=== PATIENT | female | born 1980 | race Caucasian/White ===

== ENCOUNTER 2016-04-18 08:47 | Emergency (ER) | payer OTHER ==
--- NOTE | 2016-04-18 08:57 | ED Physician Documentation ---
General Adult - HISTORIAN Historian: patient - HPI Chief Complaint: General Adult Onset: days ago (3 days) Timing: still present Severity: moderate Context: no precipitating factors Further Comments: yes (3 days started with fever/chills, runny nose clear to yellow, no blood noted. HAs a mild sore throat, mild productive cough, yellow/ green. Has a headaches, body aches. Perri was sick last week with VGE symptoms. Patient denies that she is ) - ROS CONST: fever, recent illness - PAST HX Past History: asthma Other History: none Surgeries/Procedures: Allergies/Adverse Reactions: Allergies Allergy/AdvReac Type Severity Reaction Status Date / Time amoxicillin [Amoxicillin] Allergy Mild Verified 04/18/16 08:55 penicillin G Allergy Mild Verified 04/18/16 08:55 Home Medications: Ambulatory Orders Medication Instructions Recorded NK [NK] 01/29/15 - SOCIAL HX Smoking History: greater than 1 pack/day Alcohol Use: none Drug Use: none - FAMILY HX Family History: No - VITAL SIGNS Vital Signs: Vital Signs Temp Pulse Resp BP Pulse Ox 129/91 01/29/15 16:30 - REVIEWED ASSESSMENTS Nursing Assessment Reviewed: Yes Vitals Reviewed: Yes General Adult Physical Exam - PHYSICAL EXAM GENERAL APPEARANCE: mild distress EENT: eye inspection normal, ENT inspection normal, pharyngeal erythema (mild) NECK: normal inspection, thyroid normal, supple. No: lymphadenopathy RESPIRATORY: no resp distress, chest non-tender, breath sounds normal. No: wheezes, rales, rhonchi CVS: reg rate & rhythm, heart sounds normal, equal pulses, no gallop ABDOMEN: soft, no organomegaly, normal bowel sounds, no abdominal bruit, no distension, non-tender BACK: no CVA tenderness SKIN: warm/dry, normal color, other (no rash, some ecchymosis tot he left neck area) NEURO: oriented X3, mood/affect nml, cognition normal Discharge Clincal Impression: Viral syndrome Referrals: Yolie Carrero MD [Primary Care Provider] - 2 Days Additional Instructions: Drink a lot of water, take some Tylenol or Ibuprofen as needed for aches and fever. Take your rescue inhaler as needed for wheezing or exacerbation of asthma. If your breathing starts to get worse to follow-up with your primary care provider or return to the ED. Home Medications: Ambulatory Orders NK [NK] 01/29/15 Condition: Stable Disposition: 01 HOME, SELF-CARE Decision to Admit: NO Date of Decison to Admit: 04/18/16 Decision Time: 09:05
[2016-04-18 09:17] VITALS: BP 108/68
== END 2016-04-18 09:15 | disposition home or self-care (01) ==
LOC: ED 08:47
DX: J06.9 Acute upper respiratory infection, unspecified (principal); F17.210 Nicotine dependence, cigarettes, uncomplicated
CPT/HCPCS: 87400; 99282

== ENCOUNTER 2016-05-16 08:48 | Emergency (ER) | payer OTHER ==
--- NOTE | 2016-05-16 08:54 | ED Physician Documentation ---
General Adult - HISTORIAN Historian: patient - HPI Stated Complaint: L foot pain Chief Complaint: General Adult Onset: days ago (2) Timing: still present Severity: moderate Further Comments: yes (Pt is a 35 yo female with L foot pain x 2 days. No acute injury. Pain is over L 5th metatarsal and radiates to ankle.) - ROS CONST: no problems EYES/ENT: none CVS/RESP: none GI/: none MS/SKIN/LYMPH: other (L foot pain) - PAST HX Past History: none Other History: none Allergies/Adverse Reactions: Allergies Allergy/AdvReac Type Severity Reaction Status Date / Time amoxicillin [Amoxicillin] Allergy Mild Verified 05/16/16 08:58 penicillin G Allergy Mild Verified 05/16/16 08:58 Home Medications: Ambulatory Orders Medication Instructions Recorded Zolpidem Tartrate [Ambien] 5 mg PO HS 05/16/16 - SOCIAL HX Smoking History: cigarettes - FAMILY HX Family History: No - VITAL SIGNS Vital Signs: Vital Signs Temp Pulse Resp BP Pulse Ox 108/68 04/18/16 09:15 - REVIEWED ASSESSMENTS Nursing Assessment Reviewed: Yes Vitals Reviewed: Yes Progress - Progress Progress: X-rays L foot, L ankle, negative for fracture. Increased pain with application of tuning fork. ? occult hairline fx Crutches, post-op shoe. NSAIDS. General Adult Physical Exam - PHYSICAL EXAM GENERAL APPEARANCE: mild distress EENT: eye inspection normal NECK: normal inspection, supple RESPIRATORY: no resp distress, chest non-tender, breath sounds normal CVS: reg rate & rhythm BACK: normal inspection SKIN: warm/dry, normal color EXTREMITIES: normal range of motion, other (tenderness over L 5th metatarsal) NEURO: oriented X3, motor nml, sensation nml Discharge Clincal Impression: possible occult fracture Foot pain Qualifiers: Laterality: left Qualified Code(s): M79.672 - Pain in left foot Referrals: Yolie Carrero MD [Primary Care Provider] - Home Medications: Ambulatory Orders Zolpidem Tartrate [Ambien] 5 mg PO HS 05/16/16 Condition: Good Disposition: 01 HOME, SELF-CARE Decision to Admit: NO Decision Time: 09:50
--- NOTE | 2016-05-16 09:46 | Diagnostic Imaging Report ---
GIAN HOYOS [facility] [address] [facility] [address] [address] Report Submission Date: May 16, 2016 9:44:02 AM METROLOGY SPECIALIST Patient Study Name: FAUSTO TABARES Date: May 16, 2016 9:19:00 AM METROLOGY SPECIALIST Modality Type: CR Gender: F Description: LOWER EXTREMITY : 84 Institution: [facility] Physician: GIAN HOYOS 3 views left foot History: LEFT FOOT, PAIN X2 DAYS, NO KNOWN INJURY Findings: No comparison studies No evidence of acute fracture or dislocation of the left foot. Joint spaces are preserved. No osseous erosion Plantar calcaneal enthesophyte is present Impression: No acute osseous pathology. Plantar calcaneal enthesophyte. Electronically signed on May 16, 2016 9:44:02 AM METROLOGY SPECIALIST by: Jeanne GARCIA
--- NOTE | 2016-05-16 09:46 | Diagnostic Imaging Report ---
GIAN HOYOS [facility] [address] [facility] [address] [address] Report Submission Date: May 16, 2016 9:42:13 AM MAID SUPERVISOR Patient Study Name: FAUSTO TABARES Date: May 16, 2016 9:21:04 AM MAID SUPERVISOR Modality Type: CR Gender: F Description: LOWER EXTREMITY : 84 Institution: [facility] Physician: GIAN HOYOS 3 views of the left ankle History: LEFT ANKLE, PAIN X2 DAYS, NO KNOWN INJURY Findings: No comparison studies No evidence of acute fracture or dislocation of the left ankle Ankle mortise is preserved Soft tissues are within normal limits Plantar calcaneal enthesophyte is present Impression: 1. No evidence of acute fracture or dislocation 2. Plantar calcaneal enthesophyte Electronically signed on May 16, 2016 9:42:13 AM MAID SUPERVISOR by: Jeanne GARCIA
[2016-05-16 10:03] VITALS: BP 102/68
== END 2016-05-16 10:00 | disposition home or self-care (01) ==
LOC: ED 08:48
DX: M79.672 Pain in left foot (principal)
CPT/HCPCS: 73610; 73630; L3260; 99283

== ENCOUNTER 2019-01-16 14:43 | Outpatient (CLI) | payer BC ==
[2019-01-16 14:58] LABS: BASOPHILS % 0.5 % (0.0-1.5)
[2019-01-16 15:24] LABS: eGFR (Non-African) > 60
--- NOTE | 2019-01-19 11:22 | Diagnostic Imaging Report ---
EMIL BECKWITH [facility] [address] [facility] [address] [address] Report Submission Date: Jan 16, 2019 4:01:37 PM CDT Patient Study Name: FAUSTO TABARES Date: Jan 16, 2019 2:47:13 PM CDT Modality Type: US Gender: F Description: US TRANSVAGINAL PELVIS : 84 Institution: [facility] Physician: EMIL BECKWITH Exam: Endovaginal ultrasound. History: Pain. History of cervical cancer. Real-time grayscale imaging of the pelvis transvaginal is performed. The uterus measures 5.7 by 2.4 cm in greatest dimensions. The endometrial canal is not thickened. Irregularity in the cervical region of the uterus may correspond to patient's history of cervix removal due to cancer. Small amount of fluid in the lower uterine segment and in the cul-de-sac is identified. The right ovary is of normal echotexture. The left ovary is not well seen. Impression: Possible postoperative changes in the region of the lower uterine segment. Some fluid in the lower segment endometrial canal and in the cul-de-sac is noted. The left ovary is not well visualized. Comparison with any previous studies may be beneficial to further evaluate. Electronically signed on Jan 16, 2019 4:01:37 PM CDT by: Jeremiah GARCIA
== END 2019-01-16 14:48 ==
LOC: LAB 14:43
PROVIDERS: ATTEND Family Medicine
DX: R10.84 Generalized abdominal pain (principal); R10.2 Pelvic and perineal pain
CPT/HCPCS: 36415; 76830; 80053; 85025; 87086; 87491; 87591

== ENCOUNTER 2019-01-17 13:44 | Outpatient (CLI) | payer BC ==
--- NOTE | 2019-01-17 16:14 | Diagnostic Imaging Report ---
PATIENT MR#: [id number] PATIENT PATIENT NAME: FAUSTO TABARES DATE OF : 1980 REFERRING PHYSICIAN: Yolie Carrero EXAM DATE: 01/17/2019 ACCESSION NUMBER: [id number] EXAM DESCRIPTION: CT ABD PELVIS W/ CON CLINICAL HISTORY: GENERALIZED ABDOMINAL PAIN TECHNIQUE: CT abdomen and pelvis following administration of IV 90mL Omnipaque 350. COMPARISON: Pelvic ultrasound January 16, 2019. CT ABDOMEN WITH IV CONTRAST: Lung bases: No lung base infiltrate or effusion. Liver: No intrahepatic ductal dilation. Gallbladder: Normally distended. Pancreas: No pancreatic duct dilation. Bowel loops: Nondistended. Spleen: Normal size. Adrenals: Normal size. Kidneys: No hydronephrosis. Aorta: Normal caliber. Peritoneum: No free air. Umbilicus: There is a 1.5 x 1.4 cm nodule induration just inferior to the umbilicus. CT PELVIS WITH IV CONTRAST: Colon: Nondistended. Appendix: Normal appendix is seen. Bladder: Normally distended. Pelvic organs: 2.3 and 1.8 cm left ovarian cysts. Peritoneum: No fluid. Skeleton: No acute findings. IMPRESSION: 1. No acute intra-abdominal findings to explain abdominal pain. 2. 1.5 cm indurated subcutaneous nodule inferior to the umbilicus. Correlate with physical exam and p oint tenderness to determine whether this represents an acute infectious nodule or cyst. 3. Two left ovarian cysts, largest 2.3 cm. These cysts were not visualized on the recent transvaginal pelvic ultrasound due to high position, but may be accessible via transabdominal ultrasound. Read by: Dr. Michael Ruelas Transcribed by: Michael Ruelas Transcribed Date: 01/17/2019 4:13:39 PM Electronically signed by: Dr. Michael Ruelas Date signed: 01/17/2019 4:13:52 PM
== END 2019-01-17 13:50 ==
LOC: RAD 13:44
PROVIDERS: ATTEND Family Medicine
DX: R10.84 Generalized abdominal pain (principal)
CPT/HCPCS: 74177; Q9967